=== PATIENT | female | born 1975 | race Caucasian/White ===

== ENCOUNTER → 2023-06-07 07:18 | Outpatient (REF) | payer OTHER, SELFPAY | LOC: HWWDC 07:18 | PROVIDERS: ATTENDING PHYSICIAN Nurse Practitioner Adult Health; FAMILY PHYSICIAN Internal Medicine | DX: Z12.31 Encounter for screening mammogram for malignant neoplasm of breast (principal) | CPT/HCPCS: 77063; 77067 ==

== ENCOUNTER → 2023-06-17 09:52 | Outpatient (REF) | payer OTHER, SELFPAY | LOC: HWRAD 09:52 | PROVIDERS: ATTENDING PHYSICIAN Nurse Practitioner Adult Health; FAMILY PHYSICIAN Internal Medicine | DX: N83.209 Unspecified ovarian cyst, unspecified side (principal) | CPT/HCPCS: 76830; 76856 ==

== ENCOUNTER → 2023-11-19 09:50 | Outpatient (REF) | payer OTHER, SELFPAY | LOC: HWRCS 09:50 | PROVIDERS: ATTENDING PHYSICIAN Internal Medicine | DX: I34.0 Nonrheumatic mitral (valve) insufficiency (principal) | CPT/HCPCS: 93306 ==

== ENCOUNTER → 2024-09-08 08:38 | Outpatient (REF) | payer OTHER, SELFPAY | LOC: HWWDC 08:38 | PROVIDERS: ATTENDING PHYSICIAN Nurse Practitioner Adult Health; FAMILY PHYSICIAN Internal Medicine | DX: Z12.31 Encounter for screening mammogram for malignant neoplasm of breast (principal) | CPT/HCPCS: 77063; 77067 ==